=== PATIENT | male | born 1955 | race Caucasian/White ===

== ENCOUNTER 2019-09-01 08:51 | Emergency (ER) | payer MEDICARE ==
[2019-09-01] MEDS ORDERED: Ketorolac Tromethamine 30 MG/ML VIAL ONE (09:16)
== END 2019-09-01 09:20 | disposition home or self-care (01) ==
LOC: BURERS 08:51
DX: M19.90 Unspecified osteoarthritis, unspecified site (principal); M62.838 Other muscle spasm; E27.1 Primary adrenocortical insufficiency; Z79.899 Other long term (current) drug therapy
CPT/HCPCS: 96372; 99283; J1885

== ENCOUNTER 2019-09-02 08:48 | Emergency (ER) | payer MEDICARE | END 2019-09-02 09:15 | disposition home or self-care (01) | LOC: BURERS 08:48 | DX: M54.2 Cervicalgia (principal); E27.1 Primary adrenocortical insufficiency | CPT/HCPCS: 99281 ==

== ENCOUNTER 2022-05-16 17:35 | Emergency (ER) | payer MEDICARE ==
[2022-05-16] MEDS ORDERED: HYDROmorphone 0.5 MG/0.5 ML SYRINGE ONE (18:14)
[2022-05-16] MEDS ORDERED: Ondansetron PF 4 MG/2 ML Vial ONE (18:15)
[2022-05-16] MEDS ORDERED: Hydrocortisone Sod Succ/PF 100 mg/2 ml Vial ONE (18:35)
[2022-05-16] MEDS ORDERED: Midazolam HCl 2 mg/2 ml Vial ONE (18:35)
[2022-05-16] MEDS ORDERED: Ketamine 50 MG/ML (10ML VIAL) ONE (18:35)
== END 2022-05-16 20:58 | disposition home or self-care (01) ==
LOC: BURERS 17:35
DX: S73.015A Posterior dislocation of left hip, initial encounter (principal); X58.XXXA Exposure to other specified factors, initial encounter
CPT/HCPCS: 27250; 72170; 96374; 96375; 99152; J1170; J1720; J2250; J2405

== ENCOUNTER 2022-05-23 11:14 | Emergency (ER) | payer MEDICARE ==
[2022-05-23] MEDS ORDERED: Hydrocortisone Sod Succ/PF 100 mg/2 ml Vial ONE (11:35)
[2022-05-23] MEDS ORDERED: Fentanyl 100 MCG/2 ML VIAL ONE ×2 (11:35→13:24)
[2022-05-23] MEDS ORDERED: Midazolam HCl 2 mg/2 ml Vial ONE (12:22)
[2022-05-23] MEDS ORDERED: Ketamine 50 MG/ML (10ML VIAL) ONE (12:22)
== END 2022-05-23 13:27 | disposition short-term general hospital (02) ==
LOC: BURERS 11:14
DX: T84.021A Dislocation of internal left hip prosthesis, initial encounter (principal); I10 Essential (primary) hypertension; Z79.899 Other long term (current) drug therapy; W22.8XXA Striking against or struck by other objects, initial encounter
CPT/HCPCS: 94760; 96365; 96375; 96376; 99152; 99153; J1720; J2250; J3010